=== PATIENT | male | born 1995 | race Caucasian/White ===

== ENCOUNTER → 2022-04-15 | Outpatient (REF) | payer OTHER | LOC: M SFHCCLAY 11:40 | PROVIDERS: ATTEND Family Medicine | DX: M79.605 Pain in left leg (principal); Z83.2 Family history of diseases of the blood and blood-forming organs and certain disorders involving the immune mechanism ==

== ENCOUNTER → 2022-04-29 | Outpatient (CLI) | payer OTHER | LOC: M RAD 13:35 | PROVIDERS: ATTEND Physician Assistant | DX: N50.89 Other specified disorders of the male genital organs (principal) ==

== ENCOUNTER → 2022-05-08 | Outpatient (REF) | payer OTHER | LOC: M SFHCCLAY 14:46 | PROVIDERS: ATTEND Physician Assistant | DX: N50.89 Other specified disorders of the male genital organs (principal) ==

== ENCOUNTER 2022-06-12 17:35 | Emergency (ER) | payer OTHER ==
[~2022-06-12] VITALS: Ht 177.8 cm; Wt 72.9 kg
[2022-06-12] MEDS ORDERED: NAPR-885 PO (18:59)
[2022-06-12 19:24] VITALS: BP 125/78
== END 2022-06-12 19:28 | disposition home or self-care (01) ==
LOC: M ED 17:35
DX: S16.1XXA Strain of muscle, fascia and tendon at neck level, initial encounter (principal); X58.XXXA Exposure to other specified factors, initial encounter; Y92.89 Other specified places as the place of occurrence of the external cause; Y93.89 Activity, other specified; Y99.8 Other external cause status

== ENCOUNTER 2022-06-30 18:07 | Emergency (ER) | payer OTHER ==
[~2022-06-30] VITALS: Ht 177.8 cm; Wt 71.2 kg
[~2022-06-30 18:07] MED LIST: NAPR-885 PO
[2022-06-30 18:48] LABS: BASO # 0.1 10^3/uL (0.0-0.2); BASO % 0.9 % (0.0-1.0); EOS # 0.1 10^3/uL (0.0-0.5); EOS % 1.4 % (0.0-3.0); HEMATOCRIT 42.2 % (42.0-52.0); HEMOGLOBIN 14.7 g/dl (13.5-17.5); LYMPH # 1.5 10^3/uL (1.5-5.0); LYMPH % 25.4 % (24.0-44.0); MEAN CORPUSCULAR HEMOGLOBIN 29.4 pg (27.0-33.0); MEAN CORPUSCULAR HGB CONC 34.8 g/dl (32.0-36.5); MEAN CORPUSCULAR VOLUME 84.4 fl (80.0-96.0); MONO # 0.5 10^3/uL (0.0-0.8); MONO % 9.3 % (2.0-8.0); NEUTROPHILS # 3.7 10^3/uL (1.5-8.5); NEUTROPHILS % 62.8 % (36.0-66.0); PLATELET COUNT, AUTOMATED 249 10^3/uL (150-450); WHITE BLOOD COUNT 5.8 10^3/uL (4.0-10.0)
[2022-06-30 19:09] LABS: CK-MB VALUE MASS 1.4 NG/ML (<3.6)
[2022-06-30 19:10] LABS: LIPASE 34 U/L (12-53)
[2022-06-30 19:12] LABS: ALBUMIN 4.2 G/DL (3.2-5.2); ALKALINE PHOSPHATASE 69 U/L (46-116); ALT/SGPT 27 U/L (7.0-40); AST/SGOT 19 U/L (<34); BILIRUBIN,DIRECT 0.3 MG/DL (<0.4); BILIRUBIN,TOTAL 0.8 MG/DL (0.3-1.2); BLOOD UREA NITROGEN 11 MG/DL (9-23); CALCIUM LEVEL 9.2 MG/DL (8.5-10.1); CARBON DIOXIDE LEVEL 28 MMOL/L (20-31); CHLORIDE LEVEL 104 MMOL/L (98-107); CPK CREATINE PHOSPHOKINASE 81 U/L (46-171); CREATININE FOR GFR 0.79 MG/DL (0.70-1.30); GLOMERULAR FILTRATION RATE > 60.0 (>60); GLUCOSE, FASTING 88 MG/DL (60-100); MB/CK RELATIVE INDEX 1.72 (< OR =4); POTASSIUM SERUM 4.2 MMOL/L (3.5-5.1); SODIUM LEVEL 137 MMOL/L (136-145); TOTAL PROTEIN 7.5 G/DL (5.7-8.2)
[2022-06-30 19:16] LABS: THYROID STIMULATING HORMONE 1.006 uIU/ML (0.55-4.78)
[2022-06-30] MEDS ORDERED: KETOROLAC 30 MG/ML 1ML VIAL IV ONE ×2 (21:45)
[2022-06-30] MEDS ORDERED: IBUP-1022 PO (22:47)
[2022-06-30 22:51] VITALS: BP 135/79
== END 2022-06-30 22:55 | disposition home or self-care (01) ==
LOC: M ED 18:07
DX: R07.89 Other chest pain (principal)
CPT/HCPCS: 36415; 71046; 80048; 80076; 82550; 82553; 83690; 84439; 84443; 84484; 85025; 85379; 93005; 96374; 99284; J1885